=== PATIENT | male | born 1990 | race Caucasian/White ===

== ENCOUNTER 2017-10-20 19:39 | Emergency (ER) | payer BC, SELFPAY ==
[2017-10-20 19:41] VITALS: BP 144/100; PULSE 103; RESP 18; TEMP 37.1; O2SAT 100; BMI 23.8
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
[2017-10-20] MEDS: fentaNYL 100 MCG/2 ML Ampul 50 MCG IV (20:24)
[2017-10-20 21:38] VITALS: BP 138/84; PULSE 98; RESP 21; O2SAT 96
[2017-10-20 22:12] VITALS: BP 128/76; PULSE 84; RESP 17; O2SAT 97
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
[2017-10-20 22:30] VITALS: BP 110/73; PULSE 74; RESP 18; O2SAT 98
[2017-10-20] MEDS: Diphth,Pertuss(Acell),Tet Vac 0.5 ML Vial IM (22:32)
[2017-10-20] MEDS: morphine 8 MG/ML Syringe SC (22:44)
== END 2017-10-20 22:52 | disposition home or self-care (01) ==
PROVIDERS: Emergency Provider Emergency Medicine
DX: S01.81XA Laceration without foreign body of other part of head, initial encounter (principal); S30.810A Abrasion of lower back and pelvis, initial encounter; S92.101A Unspecified fracture of right talus, initial encounter for closed fracture; S20.212A Contusion of left front wall of thorax, initial encounter; V59.88XA Occupant (driver) (passenger) of pick-up truck or van injured in other specified transport accidents, initial encounter; Y93.89 Activity, other specified; Y92.410 Unspecified street and highway as the place of occurrence of the external cause; Y99.8 Other external cause status; Z72.0 Tobacco use; Z23 Encounter for immunization
CPT/HCPCS: 12011; 29515; 70450; 71250; 72125; 73610; 73630; 74176; 90471; 90715; 96372; 96374; 99285; J7030

== ENCOUNTER → 2017-10-30 11:36 | Outpatient (CLI) | payer BC, SELFPAY ==
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
== END ==
PROVIDERS: Visit Provider Physician Assistant
DX: S92.121A Displaced fracture of body of right talus, initial encounter for closed fracture (principal)
CPT/HCPCS: 73700

== ENCOUNTER 2018-02-10 16:15 | Emergency (ER) | payer SELFPAY ==
[2018-02-10 16:17] VITALS: BP 122/88; PULSE 91; RESP 18; TEMP 36.7; O2SAT 100; BMI 23.3
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
--- NOTE | 2018-02-10 17:16 | ED.DEP ---
ED Disposition - Plan for ED Patient: Chief Complaint: Head Injury Instructions: ED Head Injury Closed Prescriptions: Naproxen [Naprosyn] 500 mg PO BID PRN #20 tablet Referrals: Care Physician,No Primary [Primary Care Provider] - Bogdan Loera MD [STAFF PHYSICIAN] -
[2018-02-10 17:32] VITALS: BP 118/75; PULSE 61; RESP 16; O2SAT 100
== END 2018-02-10 17:33 | disposition home or self-care (01) ==
LOC: ED 16:47
PROVIDERS: Emergency Provider Emergency Medicine
DX: S09.90XA Unspecified injury of head, initial encounter (principal); V57.6XXA Passenger in pick-up truck or van injured in collision with fixed or stationary object in traffic accident, initial encounter; Y93.89 Activity, other specified; Y92.488 Other paved roadways as the place of occurrence of the external cause; Y99.9 Unspecified external cause status; Z72.0 Tobacco use
CPT/HCPCS: 70450; 70486; 99282